=== PATIENT | female | born 1950 | race Caucasian/White ===

== ENCOUNTER 2019-04-03 20:44 | Emergency (ER) | payer OTHER ==
[~2019-04-03] VITALS: Ht 152.4 cm; Wt 95.3 kg
[~2019-04-03 20:44] MED LIST: AVAPRO75 MG PO; PERCOCET 5/3251 TAB PO; POLY119PG PO; SURFAK240 M1 PO; [UNRECOGNIZED DRUG - OTHER]
[2019-04-04] MEDS ORDERED: ONDANSETRON ODT4 MG SL (02:49)
[2019-04-04] MEDS ORDERED: KETO10TA2 PO (02:49)
[2019-04-04] MEDS ORDERED: CEFADROXIL500 MG PO (02:49)
[2019-04-04] MEDS ORDERED: TAMS0.4C PO (02:49)
== END 2019-04-04 03:04 | disposition home or self-care (01) ==
LOC: ER 20:44
DX: N39.0 Urinary tract infection, site not specified (principal); N20.9 Urinary calculus, unspecified; R11.2 Nausea with vomiting, unspecified